=== PATIENT | male | born 1945 | race Hispanic/Latino ===

== ENCOUNTER 2018-02-24 09:17 | Day surgery (SDC) | payer OTHER ==
[~2018-02-24] VITALS: Ht 170.2 cm; Wt 74.8 kg
[2018-02-24 09:23] VITALS: BP 147/80
[2018-02-24] MEDS ORDERED: SERT100T PO (09:58)
[2018-02-24] MEDS ORDERED: ZOLP10TA2 PO (09:58)
[2018-02-24] MEDS ORDERED: SODIUM CHLORIDE 0.9% 1000ML 1,000 ML IV ONE (10:49)
[2018-02-24] MEDS ORDERED: PROPOFOL 10 MG/ML 20ML VIAL IV ONE ×2 (11:36→11:52)
[2018-02-24 11:57] VITALS: BP 125/65
== END 2018-02-24 12:50 | disposition home or self-care (01) ==
LOC: ENDO 09:17 → DAH 09:17 → ENDO 12:50
PROVIDERS: ATTEND Internal Medicine Gastroenterology
DX: Z12.11 Encounter for screening for malignant neoplasm of colon (principal); D12.3 Benign neoplasm of transverse colon; K62.1 Rectal polyp; Z79.899 Other long term (current) drug therapy; Z98.890 Other specified postprocedural states; Z87.19 Personal history of other diseases of the digestive system; Z80.42 Family history of malignant neoplasm of prostate
CPT/HCPCS: 45380; 88305; A4606; J2704 ×2; J7030